=== PATIENT | male | born 1965 | race Caucasian/White ===

== ENCOUNTER 2023-05-06 07:04 | Day surgery (SDC) | payer BC, MEDICAID ==
[~2023-05-06 07:04] MED LIST: LACTATED RINGERS 1,000 ML IV SCH; LIDOCAINE 1% (10MG/ML) FOR IV START INTRADERMA PRN
[2023-05-06 07:36] VITALS: TEMP 97
[2023-05-06] MEDS ORDERED: MIDAZOLAM 2 MG/2 ML VIAL ONE (07:55)
[2023-05-06] MEDS ORDERED: PROPOFOL 10 MG/ML 20 ML VIAL IV ONE (07:55)
[2023-05-06] MEDS ORDERED: LIDOCAINE 2% INJ 20 MG/ML (2 ML VIAL) ONE (07:55)
--- NOTE | 2023-05-06 08:20 | P.PCN ---
Date of Procedure: 05/06/23 Procedure(s) Performed: Brief history: Patient is a pleasant 58-year-old white male scheduled for an elective upper endoscopy as well as colonoscopy as a part of evaluation of intermittent dysphagia to solids and screening for colon cancer Procedure performed: Esophagogastroduodenoscopy with biopsy and dilation Colonoscopy Preoperative diagnosis: Intermittent dysphagia to solids Screening for colon cancer [place] [facility] [place] After informed consent was obtained from the patient was brought into the endoscopy unit and IV sedation was administered by anesthesia under continuous monitoring. Initially upper endoscopy was done. The Olympus GF 160 video endoscope was inserted inserted into the mouth and esophagus intubated without any difficulty and was gradually advanced into the stomach and duodenum and carefully examined. The bulb and second part of the duodenum appeared normal. The scope was then withdrawn into the stomach adequately insufflated with air and upon careful examination the antrum had minimal antral gastritis and body, cardia and fundus appeared normal. The scope was then withdrawn into the esophagus. Small hiatal hernia noted. The GE junction was located at 40 cm to the incisors. There were multiple superficial mucosal rings with thickened esophageal folds in the mid and distal esophagus. At the GE junction there was an esophageal stricture identified which did not impede the passage of the scope. At this time I proceeded with balloon dilation using 15-18 mm balloon. Initially it was dilated to 15 mm for 30 seconds and then went up to 16.5 mm for another 30 seconds. At this time there was brisk oozing identified and hence further dilation was not performed. There was a mucosal tear noted at the site of dilation at the GE junction. Following this multiple biopsies were done from the mid and distal esophagus to evaluate for eosinophilic esophagitis. . Rest of the esophagus appeared normal. Patient tolerated the procedure well. At this time the patient continued to remain sedation. Initial digital rectal examination was normal. Olympus CF 160 video colonoscope was then inserted into the rectum and gradually advanced to the cecum without any difficulty. Careful examination was performed as the scope was gradually being withdrawn. The prep was excellent. The cecum, ascending colon, transverse colon, descending colon, sigmoid colon and rectum appeared normal. Retroflexion was performed in the rectum and no lesions were noted. Patient tolerated the procedure well. Impression: 1. Upper endoscopy revealed small hiatal hernia, multiple superficial mucosal rings with thickened esophageal folds and distal esophageal stricture status post balloon dilation using 15 and 16/2 TTS balloon as described above 2. Colonoscopy was within normal limits with no evidence of colorectal neoplasia Recommendations: Findings of this examination were discussed with the patient as well as his family. He was advised to follow with the biopsy results. Advised to be on a clear liquid diet for lunch. Follow up in office in 2-3 weeks. I recommend repeat screening colonoscopy in 10 years.
[2023-05-06 08:33] VITALS: PULSE 73
[2023-05-06 08:45] VITALS: BP 144/85; RESP 16
== END 2023-05-06 09:00 | disposition home or self-care (01) ==
LOC: ORWHC2ENDO 07:04
PROVIDERS: ATTEND Internal Medicine Gastroenterology
DX: Z12.11 Encounter for screening for malignant neoplasm of colon (principal); K21.00 Gastro-esophageal reflux disease with esophagitis, without bleeding; K44.9 Diaphragmatic hernia without obstruction or gangrene; K22.2 Esophageal obstruction; G47.33 Obstructive sleep apnea (adult) (pediatric); F17.210 Nicotine dependence, cigarettes, uncomplicated; Z79.899 Other long term (current) drug therapy
CPT/HCPCS: 88305; 45378; 43239; 43249; J2250; J2704; J2001; C1726